=== PATIENT | male | born 1985 | race Two or more races ===

== ENCOUNTER 2023-10-21 21:05 | Emergency (ER) | payer OTHER ==
[~2023-10-21] VITALS: Ht 182.9 cm; Wt 100.0 kg
[2023-10-21] MEDS ORDERED: ceFAZolin 2 GM/D5W100ml 100 ML IV ONE (22:45)
[2023-10-21] MEDS ORDERED: TETANUS-DIPTH-ACEL PERTUSSIS 0.5ML SYR Tdap IM ONE (22:45)
[2023-10-21] MEDS ORDERED: KETOROLAC TROMETH 60MG/2ML VIAL IM ONE (23:00)
[2023-10-22] MEDS ORDERED: ceFAZolin 1GM/50ML 50 ML IV ONE ×2 (00:45)
[2023-10-22 03:47] VITALS: BP 129/76; PULSE 89; RESP 18; TEMP 98.9; O2SAT 98
== END 2023-10-22 03:47 | disposition home or self-care (01) ==
LOC: ER 21:05 → EEVIPCON 21:05 → ER 23:16
DX: S62.306A Unspecified fracture of fifth metacarpal bone, right hand, initial encounter for closed fracture (principal); S62.304A Unspecified fracture of fourth metacarpal bone, right hand, initial encounter for closed fracture; S61.411A Laceration without foreign body of right hand, initial encounter; W22.01XA Walked into wall, initial encounter; Y93.89 Activity, other specified; Y92.89 Other specified places as the place of occurrence of the external cause; Y99.8 Other external cause status
CPT/HCPCS: 12001; 29125; 73110; 73130; 90471; 90715; 96365; 96366; 96372; 99284; J0690; J1885; 96361